=== PATIENT | female | born 1980 | race Caucasian/White ===

== ENCOUNTER 2016-04-10 13:44 | Inpatient (IN) | payer OTHER ==
[~2016-04-10] VITALS: Ht 162.6 cm; Wt 74.7 kg
[~2016-04-10 13:44] MED LIST: AMPICILLIN SODIU2 GM IM; ASPIRIN325 MG PO; ASPIRIN81 M2 PO; ATARAX,VISTARIL25 MG PO; ATARAX10 MG PO; B COMPLEX #11 EACH PO; B-COMPLEX-VITA1 EACH PO; BUPRENORPHIN-N1 EACH SL; CELEBREX200 MG PO; CHANTIX1 MG PO; CIPRO500 MG PO; CLINDAMYCIN HC300 MG PO; CLINDAMYCIN PO; COLACE100 MG PO; COUMADIN5 MG PO; CYANOCOBALAM1000 MCG PO; CYMBALTA30 MG PO; Ceftin PO; Coumadin,Jantoven PO; DAILY VALUE1 EACH PO; DIFLUCAN200 MG PO; DILAUDID4 MG PO; DOCUSATE SODIU100 MG PO; DUONEB 2.5-0.5 M3 ML IH; ENDOCET 5-3251 EACH PO; FERROUS SULFAT325 MG PO; FIORICET,ESG1 TABLET PO; FLAGYL500 MG PO; FLEXERIL10 MG PO; FLUOXETINE HCL10 MG PO; FLUOXETINE HCL20 M1 PO; FLUOXETINE HCL40 MG PO; FOLIC ACID0.4 MG PO; FOLIC ACID1 MG PO; Feosol PO; GABAPENTIN300 MG PO; GABAPENTIN600 MG PO; GEODON20 MG PO; GEODON80 MG PO; HYDROXYZINE HCL50 MG PO; IBUPROFEN800 MG PO; IMITREX20 MG NS; INDOCIN25 MG PO; IRON325 MG PO; KEFLEX500 MG PO; KENALOG,ARISTOC80 G1 TP; KLONOPIN0.5 M1 PO; LAMICTAL25 MG PO; LAMOTRIGINE100 MG PO; LEVAQUIN750 MG PO; LINZESS145 MCG PO; LUNESTA3 MG PO; MAXIPIME1 GM IV; MOTRIN600 MG PO; MOTRIN800 MG PO; NAPROSYN375 MG PO; NAPROSYN500 MG PO; NORCO 5/3251 TABLET PO; ONE DAILY WOME1 EACH PO; OPANA ER10 MG PO; OPANA ER15 MG PO; OPANA ER20 MG PO; OPANA IR10 MG PO; OPANA IR5 MG PO; OXYCODONE HCL5 MG PO; OXYCONTIN10 MG PO; OXYMORPHONE HCL5 MG PO; PERCOCET 10/1 TABLE1 PO; PERCOCET 10/1 TABLET PO; PERCOCET 5/31 TABLET PO; PHENERGAN25 MG PR; PRAZOSIN HCL1 MG PO; PRAZOSIN HCL2 MG PO; PROCHLORPERAZIN10 MG PO; PROMETHAZINE HC25 M1 PO; PROVENTIL,2.5 MG/3 M IH; PROZAC40 MG PO; PriLOSEC PO; RANITIDINE HCL150 MG PO; RITALIN20 MG PO; ROCEPHIN 2 GM VI2 GM IV; SENNA8.6 M1 PO; SENNA8.6 MG PO; SKELAXIN400 M1 PO; SOMA350 MG PO; SUBOXONE 12 MG1 EACH SL; SUBOXONE 4 MG-1 EACH PO; SUBOXONE 4 MG-1 EACH SL; TRAZODONE HCL100 MG PO; TROKENDI XR100 MG PO; ULTRAM50 MG PO; VANCOMYCIN1.25 GM/25 IV; Vibramycin, Doryx PO; WARFARIN SODIUM5 MG PO; WARFARIN SODIUM6 MG PO; ZANTAC150 MG PO; ZOFRAN ODT4 MG PO; ZOFRAN4 MG PO; ZOFRAN8 MG PO
[2016-04-10] MEDS ORDERED: SUBOXONE 8 MG-1 EAC2 SL (15:35)
[2016-04-10] MEDS ORDERED: PROZAC40 MG PO (15:37)
[2016-04-10] MEDS ORDERED: ZANTAC150 MG PO (15:37)
[2016-04-10] MEDS ORDERED: REGLAN10 MG PO (15:39)
[2016-04-10] MEDS ORDERED: GABAPENTIN300 MG PO ×2 (15:40)
[2016-04-10] MEDS ORDERED: LATUDA20 MG PO (15:41)
[2016-04-10] MEDS ORDERED: WELLBUTRIN SR150 MG PO (15:42)
[2016-04-10 16:15] LABS: HEMATOCRIT 33.7 % (36.0-46.0); MCHC 33.5 G/DL (30.0-36.0); MCV 92.6 FL (83-99); MEAN PLAT.VOLUME 10.1 uM^3 (9.5-12.4); PLATELET COUNT 197 K/uL (156-360); RBC DIS.WIDTH-CV 13.6 % (11.8-14.6); RBC DIS.WIDTH-SD 44.3 % (39-53); RED BLOOD COUNT 3.64 M/uL (3.80-5.20); WHITE BLOOD COUNT 9.3 K/uL (4.1-10.2)
[2016-04-10 16:25] LABS: CHLORIDE 111 mEq/L (99-109); POTASSIUM 3.5 mEq/L (3.7-5.4); SODIUM 139 mEq/L (136-147)
[2016-04-10 16:27] LABS: GLUCOSE 98 mg/dL (70-99)
[2016-04-10 16:28] LABS: ANION GAP 9 MEQ/L (2-14)
[2016-04-10 16:31] LABS: GFR ESTIMATE (CALCULATED) > 59 mL/min/; UREA NITROGEN (BUN) 16 mg/dL (9-23)
[2016-04-10] MEDS ORDERED: IMITREX5 MG NS (22:17)
[2016-04-10] MEDS ORDERED: LAMICTAL150 M1 PO (22:18)
[2016-04-11 01:48] VITALS: BP 107/55
[2016-04-11 07:43] VITALS: BP 108/56
[2016-04-11 09:16] LABS: HEMATOCRIT 30.9 % (36.0-46.0); MCHC 32.4 G/DL (30.0-36.0); MCV 92.8 FL (83-99); MEAN PLAT.VOLUME 9.7 uM^3 (9.5-12.4); PLATELET COUNT 158 K/uL (156-360); RBC DIS.WIDTH-CV 13.9 % (11.8-14.6); RBC DIS.WIDTH-SD 47.4 % (39-53); RED BLOOD COUNT 3.33 M/uL (3.80-5.20); WHITE BLOOD COUNT 8.9 K/uL (4.1-10.2)
[2016-04-11 09:38] LABS: ANION GAP 6 MEQ/L (2-14); CHLORIDE 111 MEQ/L (99-109); GFR ESTIMATE (CALCULATED) > 59 mL/min/; GLUCOSE 86 mg/dL (70-99); POTASSIUM 3.7 MEQ/L (3.7-5.4); SAMPLE HEMOLYSIS CHECK 0; SAMPLE ICTERIC CHECK 0; SAMPLE LIPEMIA CHECK 0; SODIUM 140 MEQ/L (136-147); UREA NITROGEN (BUN) 11 mg/dL (9-23)
[2016-04-11 11:11] VITALS: BP 99/63
[2016-04-11 15:35] VITALS: BP 106/65
[2016-04-11 20:08] VITALS: BP 94/54
[2016-04-12] VITALS: BP 113/72
[2016-04-12 04:00] VITALS: BP 102/68
[2016-04-12 06:42] LABS: EOSINOPHIL (%) 1.9 % (0-5); EOSINOPHIL COUNT 0.2 K/uL (0-0.3); HEMATOCRIT 32.6 % (36.0-46.0); IMMATURE GRANULOCYTE (%) 0.2 % (0.0-0.7); LYMPHOCYTE COUNT 1.2 K/uL (1.0-2.8); MCH 29.7 PG (29.0-34.0); MCHC 32.2 G/DL (30.0-36.0); MCV 92.4 FL (83-99); MEAN PLAT.VOLUME 10.3 uM^3 (9.5-12.4); MONOCYTE (%) 6.2 % (3-12); MONOCYTE COUNT 0.7 K/uL (0-0.8); NEUTROPHIL (%) 80.5 % (45-76); NEUTROPHIL COUNT 8.8 K/uL (1.8-6.4); PLATELET COUNT 157 K/uL (156-360); RBC DIS.WIDTH-CV 13.8 % (11.8-14.6); RBC DIS.WIDTH-SD 46.5 % (39-53); RED BLOOD COUNT 3.53 M/uL (3.80-5.20); WHITE BLOOD COUNT 10.9 K/uL (4.1-10.2)
[2016-04-12 07:14] LABS: ANION GAP 9 MEQ/L (2-14); CHLORIDE 108 MEQ/L (99-109); GFR ESTIMATE (CALCULATED) > 59 mL/min/; GLUCOSE 91 mg/dL (70-99); POTASSIUM 3.9 MEQ/L (3.7-5.4); SAMPLE HEMOLYSIS CHECK 1; SAMPLE ICTERIC CHECK 0; SAMPLE LIPEMIA CHECK 0; SODIUM 139 MEQ/L (136-147); UREA NITROGEN (BUN) 10 mg/dL (9-23)
[2016-04-12 08:43] VITALS: BP 98/61
[2016-04-12 12:25] VITALS: BP 105/56
[2016-04-12 14:44] VITALS: BP 91/50
[2016-04-12 20:24] VITALS: BP 104/58
[2016-04-13] VITALS: BP 98/40
[2016-04-13 03:11] VITALS: BP 94/54
[2016-04-13 07:40] VITALS: BP 95/38
[2016-04-13 12:34] VITALS: BP 118/67
[2016-04-13] MEDS ORDERED: MORPHINE SULFAT15 MG PO (12:40)
[2016-04-13] MEDS ORDERED: AZITHROMYCIN500 M1 PO (12:40)
== END 2016-04-13 15:00 | disposition home or self-care (01) | DRG 552 ==
LOC: EME 13:44 → EDOF 04-11 00:02 → 5SOUTH 04-11 00:02
PROVIDERS: Emergency Medicine; Hospitalist; Nurse Practitioner Adult Health; Nurse Practitioner Family
DX: M51.36 Other intervertebral disc degeneration, lumbar region (principal); J44.1 Chronic obstructive pulmonary disease with (acute) exacerbation; M54.42 Lumbago with sciatica, left side; F17.200 Nicotine dependence, unspecified, uncomplicated; F11.21 Opioid dependence, in remission; F31.9 Bipolar disorder, unspecified; Z95.2 Presence of prosthetic heart valve; Z86.79 Personal history of other diseases of the circulatory system
CPT/HCPCS: 72100; 72158; 80048; 80202; 83605; 85025; 85027; 85651; 86140; 87040; 94640; 94640 76; 97530 GO; 99202; 99281; 99285; J0295; J0692; J1170; J1650; J2270; J3370; J7030; J7050; J7120

== ENCOUNTER 2016-05-20 15:45 | Emergency (ER) | payer OTHER ==
[~2016-05-20] VITALS: Ht 162.6 cm; Wt 72.7 kg
[~2016-05-20 15:45] MED LIST changes: +AZITHROMYCIN500 M1 PO; +COMPAZINE10 MG PO; +IMITREX5 MG NS; +LAMICTAL150 M1 PO; +LATUDA20 MG PO; +MORPHINE SULFAT15 MG PO; +NEURONTIN100 MG PO; +REGLAN10 MG PO; +SUBOXONE 8 MG-1 EAC2 SL; +TOPAMAX200 MG PO; +WELLBUTRIN SR150 MG PO
[2016-05-20 16:14] LABS: HEMATOCRIT 32.1 % (36.0-46.0); MCH 30.5 PG (29.0-34.0); MCHC 33.3 G/DL (30.0-36.0); MCV 91.5 FL (83-99); MEAN PLAT.VOLUME 9.2 uM^3 (9.5-12.4); PLATELET COUNT 206 K/uL (156-360); RBC DIS.WIDTH-CV 14.5 % (11.8-14.6); RBC DIS.WIDTH-SD 46.9 % (39-53); RED BLOOD COUNT 3.51 M/uL (3.80-5.20); WHITE BLOOD COUNT 6.1 K/uL (4.1-10.2)
[2016-05-20 16:22] LABS: CHLORIDE 109 mEq/L (99-109); POTASSIUM 4.2 mEq/L (3.7-5.4); SODIUM 140 mEq/L (136-147)
[2016-05-20 16:24] LABS: GLUCOSE 94 mg/dL (70-99)
[2016-05-20 16:25] LABS: ANION GAP 8 MEQ/L (2-14)
[2016-05-20 16:28] LABS: GFR ESTIMATE (CALCULATED) > 59 mL/min/
[2016-05-20 16:29] LABS: UREA NITROGEN (BUN) 20 mg/dL (9-23)
[2016-05-20 16:34] LABS: TROP-I INTERPRETATION NEGATIVE; TROPONIN-I < 0.01 ng/mL (0.0-0.30)
[2016-05-20 16:46] LABS: D-DIMER ELISA 0.36 mg/L FEU (< 0.57)
[2016-05-20] MEDS ORDERED: PROVENTIL HFA6.7 GM IH (17:51)
[2016-05-20] MEDS ORDERED: LEVAQUIN750 MG PO (17:51)
[2016-05-20 18:13] VITALS: BP 133/77
== END 2016-05-20 18:14 | disposition home or self-care (01) ==
LOC: EME 15:45
PROVIDERS: Nurse Practitioner Family
DX: J40 Bronchitis, not specified as acute or chronic (principal); R07.9 Chest pain, unspecified; M54.5 Low back pain; G43.909 Migraine, unspecified, not intractable, without status migrainosus; G89.29 Other chronic pain; M54.9 Dorsalgia, unspecified; F17.200 Nicotine dependence, unspecified, uncomplicated; Z86.718 Personal history of other venous thrombosis and embolism
CPT/HCPCS: 71020; 72100; 80048; 84484; 85027; 85379; 93005; 94640; 99281; 99285

== ENCOUNTER 2016-06-25 13:54 | Emergency (ER) | payer OTHER ==
[~2016-06-25] VITALS: Ht 162.6 cm; Wt 78.2 kg
[~2016-06-25 13:54] MED LIST changes: +PROVENTIL HFA6.7 GM IH
[2016-06-25 14:17] VITALS: BP 118/60
[2016-06-25 14:59] LABS: HEMATOCRIT 38.6 % (36.0-46.0); MCH 30.3 PG (29.0-34.0); MCHC 31.9 G/DL (30.0-36.0); MCV 95.1 FL (83-99); MEAN PLAT.VOLUME 10.2 uM^3 (9.5-12.4); PLATELET COUNT 251 K/uL (156-360); RBC DIS.WIDTH-CV 15.2 % (11.8-14.6); RBC DIS.WIDTH-SD 53.6 % (39-53); RED BLOOD COUNT 4.06 M/uL (3.80-5.20); WHITE BLOOD COUNT 6.2 K/uL (4.1-10.2)
[2016-06-25 15:12] LABS: CHLORIDE 107 mEq/L (99-109); POTASSIUM 4.6 mEq/L (3.7-5.4); SODIUM 139 mEq/L (136-147)
[2016-06-25 15:13] LABS: GLUCOSE 101 mg/dL (70-99)
[2016-06-25 15:15] LABS: ANION GAP 9 MEQ/L (2-14)
[2016-06-25 15:17] LABS: GFR ESTIMATE (CALCULATED) > 59 mL/min/
[2016-06-25 15:18] LABS: UREA NITROGEN (BUN) 24 mg/dL (9-23)
[2016-06-25 15:22] LABS: TROP-I INTERPRETATION NEGATIVE; TROPONIN-I < 0.01 ng/mL (0.0-0.30)
== END 2016-06-25 17:38 | disposition left against medical advice (07) ==
LOC: EME 13:54
DX: R05 Cough (principal); R50.9 Fever, unspecified; R07.9 Chest pain, unspecified; R20.0 Anesthesia of skin; R06.02 Shortness of breath; R68.84 Jaw pain; M54.2 Cervicalgia; R11.0 Nausea; M79.89 Other specified soft tissue disorders; G89.29 Other chronic pain; Z79.891 Long term (current) use of opiate analgesic; Z86.718 Personal history of other venous thrombosis and embolism; F17.200 Nicotine dependence, unspecified, uncomplicated
CPT/HCPCS: 71020; 80048; 83605; 84484; 85027; 87040; 93005; 99281; 99282

== ENCOUNTER 2016-08-12 11:16 | Emergency (ER) | payer OTHER ==
[~2016-08-12] VITALS: Ht 162.6 cm; Wt 79.0 kg
[2016-08-12] MEDS ORDERED: ATIVAN1 MG PO (14:35)
[2016-08-12 14:44] VITALS: BP 106/52
== END 2016-08-12 14:45 | disposition home or self-care (01) ==
LOC: EME 11:16
DX: M54.5 Low back pain (principal); G89.29 Other chronic pain; J45.909 Unspecified asthma, uncomplicated; K21.9 Gastro-esophageal reflux disease without esophagitis; I08.0 Rheumatic disorders of both mitral and aortic valves; F31.9 Bipolar disorder, unspecified; F17.200 Nicotine dependence, unspecified, uncomplicated; Z91.81 History of falling; Z86.718 Personal history of other venous thrombosis and embolism
CPT/HCPCS: 72100; 99281; 99285; J1885

== ENCOUNTER 2016-09-15 11:41 | Emergency (ER) | payer OTHER ==
[~2016-09-15] VITALS: Ht 162.6 cm; Wt 76.1 kg
[~2016-09-15 11:41] MED LIST changes: +ATIVAN1 MG PO
[2016-09-15 11:44] VITALS: BP 130/97
[2016-09-15] MEDS ORDERED: KEFLEX500 MG PO (13:39)
[2016-09-15] MEDS ORDERED: BACTROBAN OINTM22 GM TP (13:41)
== END 2016-09-15 14:03 | disposition home or self-care (01) ==
LOC: EME 11:41
DX: L03.312 Cellulitis of back [any part except buttock and flank] (principal); R00.0 Tachycardia, unspecified; R01.1 Cardiac murmur, unspecified; M19.90 Unspecified osteoarthritis, unspecified site; F41.9 Anxiety disorder, unspecified; Z98.890 Other specified postprocedural states; F17.200 Nicotine dependence, unspecified, uncomplicated
CPT/HCPCS: 99281; 99283

== ENCOUNTER 2016-09-30 16:21 | Emergency (ER) | payer OTHER ==
[~2016-09-30] VITALS: Ht 162.6 cm; Wt 78.2 kg
[~2016-09-30 16:21] MED LIST changes: +BACTROBAN OINTM22 GM TP
[2016-09-30 18:22] LABS: HEMATOCRIT 31.4 % (36.0-46.0); MCH 30.7 PG (29.0-34.0); MCHC 32.8 G/DL (30.0-36.0); MCV 93.7 FL (83-99); MEAN PLAT.VOLUME 9.9 uM^3 (9.5-12.4); PLATELET COUNT 199 K/uL (156-360); RBC DIS.WIDTH-SD 48.2 % (39-53); RED BLOOD COUNT 3.35 M/uL (3.80-5.20); WHITE BLOOD COUNT 6.9 K/uL (4.1-10.2)
[2016-09-30 18:54] LABS: GLUCOSE 110 mg/dL (70-99)
[2016-09-30 18:57] LABS: GFR ESTIMATE (CALCULATED) > 59 mL/min/
[2016-09-30 18:58] LABS: UREA NITROGEN (BUN) 13 mg/dL (9-23)
[2016-09-30 19:07] LABS: QUANTITATIVE HCG < 4.0 MIU/ML
[2016-09-30 19:10] LABS: ADD MIUA? YES; BILIRUBIN NEGATIVE; BLOOD NEGATIVE; COLOR AMBER ((YELLOW)); GLUCOSE (STRIP) NEGATIVE; KETONES NEGATIVE; LEUKOCYTES NEGATIVE; NITRITE NEGATIVE; PROTEIN (STRIP) NEGATIVE; SPECIFIC GRAVITY 1.014 (1.000-1.030); UROBILINOGEN 0.2 MG/DL (0.2-1.0)
[2016-09-30 19:23] LABS: BACTERIA NONE SEEN /HPF; EPITHELIAL CELLS RARE /HPF; MUCUS TRACE /LPF; RED BLOOD CELLS 0-5 /HPF (0-5); WHITE BLOOD CELLS 0-5 /HPF (0-5)
[2016-09-30 19:32] LABS: CHLORIDE 111 mEq/L (99-109); POTASSIUM 3.9 mEq/L (3.7-5.4); SODIUM 141 mEq/L (136-147)
[2016-09-30 19:35] LABS: ANION GAP 8 MEQ/L (2-14)
[2016-09-30 20:47] VITALS: BP 111/66
== END 2016-09-30 20:47 | disposition home or self-care (01) ==
LOC: EME 16:21
PROVIDERS: Nurse Practitioner Family
DX: M54.5 Low back pain (principal); G89.29 Other chronic pain; J45.909 Unspecified asthma, uncomplicated; Z95.2 Presence of prosthetic heart valve; F17.200 Nicotine dependence, unspecified, uncomplicated
CPT/HCPCS: 72100; 80048; 81003; 84702; 85027; 99281; 99284

== ENCOUNTER 2016-10-29 10:39 | Emergency (ER) | payer OTHER ==
[~2016-10-29] VITALS: Ht 162.6 cm; Wt 77.2 kg
[2016-10-29 13:53] VITALS: BP 123/70
== END 2016-10-29 13:59 | disposition home or self-care (01) ==
LOC: RME 10:39 → EME 10:39 → RME 13:59
DX: S06.0X0A Concussion without loss of consciousness, initial encounter (principal); W18.12XA Fall from or off toilet with subsequent striking against object, initial encounter; Y92.002 Bathroom of unspecified non-institutional (private) residence as the place of occurrence of the external cause; K21.9 Gastro-esophageal reflux disease without esophagitis; J45.909 Unspecified asthma, uncomplicated; F31.9 Bipolar disorder, unspecified; Z86.718 Personal history of other venous thrombosis and embolism; F17.200 Nicotine dependence, unspecified, uncomplicated
CPT/HCPCS: 70450; 99281; 99283; J1885

== ENCOUNTER 2016-12-07 15:46 | Emergency (ER) | payer OTHER ==
[~2016-12-07] VITALS: Ht 162.6 cm; Wt 77.0 kg
[2016-12-07 18:44] LABS: HEMATOCRIT 28.7 % (36.0-46.0); MCH 30.7 PG (29.0-34.0); MCHC 32.4 G/DL (30.0-36.0); MCV 94.7 FL (83-99); PLATELET COUNT 182 K/uL (156-360); RBC DIS.WIDTH-CV 13.8 % (11.8-14.6); RBC DIS.WIDTH-SD 47.8 % (39-53); RED BLOOD COUNT 3.03 M/uL (3.80-5.20); WHITE BLOOD COUNT 5.8 K/uL (4.1-10.2)
[2016-12-07 18:56] LABS: CHLORIDE 109 mEq/L (99-109); POTASSIUM 4.4 mEq/L (3.7-5.4); SODIUM 143 mEq/L (136-147)
[2016-12-07 18:57] LABS: GLUCOSE 79 mg/dL (70-99)
[2016-12-07 18:59] LABS: ANION GAP 10 MEQ/L (2-14)
[2016-12-07 19:01] LABS: GFR ESTIMATE (CALCULATED) > 59 mL/min/
[2016-12-07 19:02] LABS: UREA NITROGEN (BUN) 11 mg/dL (9-23)
[2016-12-07 20:13] LABS: ADD MIUA? YES; BILIRUBIN NEGATIVE; BLOOD NEGATIVE; COLOR YELLOW ((YELLOW)); GLUCOSE (STRIP) NEGATIVE; KETONES NEGATIVE; LEUKOCYTES NEGATIVE; NITRITE NEGATIVE; PROTEIN (STRIP) NEGATIVE; SPECIFIC GRAVITY 1.009 (1.000-1.030); UROBILINOGEN 0.2 MG/DL (0.2-1.0)
[2016-12-07 20:19] LABS: BACTERIA NONE SEEN /HPF; EPITHELIAL CELLS RARE /HPF; MUCUS TRACE /LPF; RED BLOOD CELLS 0-5 /HPF (0-5); WHITE BLOOD CELLS 0-5 /HPF (0-5)
[2016-12-07] MEDS ORDERED: DOXYCYCLINE HY100 MG PO (23:11)
[2016-12-08 00:08] VITALS: BP 99/67
[2016-12-10 12:19] LABS: CHLAMYDIA TRACHOMATIS NEGATIVE; NEISSERIA GONORRHOEAE NEGATIVE
== END 2016-12-08 00:09 | disposition home or self-care (01) ==
LOC: EME 15:46
PROVIDERS: Emergency Medicine; Physician Assistant Medical
DX: M54.9 Dorsalgia, unspecified (principal); N89.8 Other specified noninflammatory disorders of vagina; S80.862A Insect bite (nonvenomous), left lower leg, initial encounter; S80.861A Insect bite (nonvenomous), right lower leg, initial encounter; W57.XXXA Bitten or stung by nonvenomous insect and other nonvenomous arthropods, initial encounter; K21.9 Gastro-esophageal reflux disease without esophagitis; F17.200 Nicotine dependence, unspecified, uncomplicated; Z95.2 Presence of prosthetic heart valve; Z86.718 Personal history of other venous thrombosis and embolism
CPT/HCPCS: 71020; 76856; 80048; 81003; 85027; 87040; 87210; 87491; 87591; 93005; 99281; 99285; J0696; J7030

== ENCOUNTER 2016-12-29 19:09 | Emergency (ER) | payer OTHER ==
[~2016-12-29] VITALS: Ht 162.6 cm; Wt 75.4 kg
[~2016-12-29 19:09] MED LIST changes: +DOXYCYCLINE HY100 MG PO
[2016-12-29 20:21] LABS: HEMATOCRIT 31.6 % (36.0-46.0); MCH 30.7 PG (29.0-34.0); MCHC 32.6 G/DL (30.0-36.0); MEAN PLAT.VOLUME 10.2 uM^3 (9.5-12.4); PLATELET COUNT 211 K/uL (156-360); RBC DIS.WIDTH-CV 13.7 % (11.8-14.6); RBC DIS.WIDTH-SD 47.1 % (39-53); RED BLOOD COUNT 3.36 M/uL (3.80-5.20); WHITE BLOOD COUNT 6.3 K/uL (4.1-10.2)
[2016-12-29 20:30] LABS: CHLORIDE 108 mEq/L (99-109); POTASSIUM 3.5 mEq/L (3.7-5.4); SODIUM 144 mEq/L (136-147)
[2016-12-29 20:32] LABS: GLUCOSE 84 mg/dL (70-99)
[2016-12-29 20:33] LABS: ANION GAP 12 MEQ/L (2-14)
[2016-12-29 20:36] LABS: GFR ESTIMATE (CALCULATED) > 59 mL/min/
[2016-12-29 20:37] LABS: UREA NITROGEN (BUN) 26 mg/dL (9-23)
[2016-12-29 20:41] LABS: TROP-I INTERPRETATION NEGATIVE; TROPONIN-I < 0.01 ng/mL (0.0-0.30)
[2016-12-29 20:51] LABS: CARBON DIOXIDE (BICARBONATE) 29.2 MEQ/L (20-31)
[2016-12-29 21:42] LABS: D-DIMER ELISA < 150.00 ng/mLDDU (<230)
[2016-12-29 22:48] LABS: TROP-I INTERPRETATION NEGATIVE; TROPONIN-I < 0.01 ng/mL (0.0-0.30)
[2016-12-29 23:17] VITALS: BP 102/58
== END 2016-12-29 23:45 | disposition home or self-care (01) ==
LOC: EME → EDBD 19:09 → EME 19:09
PROVIDERS: Emergency Medicine
DX: R07.9 Chest pain, unspecified (principal); S40.862A Insect bite (nonvenomous) of left upper arm, initial encounter; S40.861A Insect bite (nonvenomous) of right upper arm, initial encounter; W57.XXXA Bitten or stung by nonvenomous insect and other nonvenomous arthropods, initial encounter; Z86.718 Personal history of other venous thrombosis and embolism; F17.200 Nicotine dependence, unspecified, uncomplicated
CPT/HCPCS: 71020; 80048; 82803; 83605; 83880; 84484; 85027; 85379; 87040; 93005; 99281; 99285; J1885

== ENCOUNTER 2017-01-02 18:32 | Inpatient (IN) | payer OTHER ==
[~2017-01-02] VITALS: Ht 162.6 cm; Wt 77.5 kg
[2017-01-02 20:10] LABS: HEMATOCRIT 32.4 % (36.0-46.0); MCH 30.1 PG (29.0-34.0); MCHC 32.7 G/DL (30.0-36.0); MEAN PLAT.VOLUME 10.5 uM^3 (9.5-12.4); PLATELET COUNT 212 K/uL (156-360); RBC DIS.WIDTH-CV 13.4 % (11.8-14.6); RBC DIS.WIDTH-SD 45.2 % (39-53); RED BLOOD COUNT 3.52 M/uL (3.80-5.20); WHITE BLOOD COUNT 7.1 K/uL (4.1-10.2)
[2017-01-02 20:22] LABS: CHLORIDE 108 mEq/L (99-109); POTASSIUM 3.9 mEq/L (3.7-5.4); SODIUM 141 mEq/L (136-147)
[2017-01-02 20:24] LABS: GLUCOSE 78 mg/dL (70-99)
[2017-01-02 20:25] LABS: D-DIMER ELISA < 150.00 ng/mLDDU (<230)
[2017-01-02 20:26] LABS: ANION GAP 11 MEQ/L (2-14)
[2017-01-02 20:27] LABS: SERUM ETHYL ALCOHOL < 10 mg/dL
[2017-01-02 20:28] LABS: GFR ESTIMATE (CALCULATED) > 59 mL/min/
[2017-01-02 20:29] LABS: UREA NITROGEN (BUN) 14 mg/dL (9-23)
[2017-01-02 20:33] LABS: TROP-I INTERPRETATION NEGATIVE; TROPONIN-I < 0.01 ng/mL (0.0-0.30)
[2017-01-02 22:10] LABS: AMPHETAMINE NEGATIVE (500 ng/mL); BENZODIAZEPINES PRESUMPTIVE POSITIVE (150 ng/mL); COCAINE NEGATIVE (150 ng/mL); METHAMPHETAMINE PRESUMPTIVE POSITIVE (500 ng/mL); OPIATES (MORPHINE) NEGATIVE (100 ng/mL); PHENCYCLIDINE NEGATIVE (25 ng/mL); THC CANNABINOIDS NEGATIVE (50 ng/mL); TRICYCLIC ANTIDEPRESSANTS NEGATIVE (300 ng/mL)
[2017-01-02 22:11] LABS: ADD MEDTOX COMMENT Y; BARBITURATES NEGATIVE (200 ng/mL); INTERNAL CONTROLS VALID? YES; METHADONE NEGATIVE (200 ng/mL); OXYCODONE NEGATIVE (100 ng/mL); PROPOXYPHENE NEGATIVE (300 ng/mL)
[2017-01-02 22:37] LABS: BENZODIAZEPINES QUANT VALUE 0 NG/ML; BENZODIAZEPINES, URINE SCREEN Negative (200 ng/mL)
[2017-01-03] MEDS ORDERED: GABAPENTIN600 MG PO (01:31)
[2017-01-03] MEDS ORDERED: OMEPRAZOLE20 MG PO (01:32)
[2017-01-03] MEDS ORDERED: LINZESS290 MCG PO (01:54)
[2017-01-03 08:04] VITALS: BP 97/56
[2017-01-03 15:24] VITALS: BP 109/58
[2017-01-04 07:32] VITALS: BP 109/83
[2017-01-04 15:17] VITALS: BP 104/60
[2017-01-05 07:25] VITALS: BP 102/71
[2017-01-05 10:17] LABS: IRON 38 MCG/DL (35-150)
[2017-01-05 15:31] VITALS: BP 105/58
[2017-01-06 08:00] VITALS: BP 103/55
[2017-01-06 17:44] VITALS: BP 113/70
[2017-01-07 07:26] VITALS: BP 83/50
[2017-01-07 09:04] VITALS: BP 117/54
[2017-01-07] MEDS ORDERED: ARIPIPRAZOLE10 MG PO (09:20)
[2017-01-07] MEDS ORDERED: BENADRYL25 MG PO (09:20)
== END 2017-01-07 11:06 | disposition home or self-care (01) | DRG 885 ==
LOC: EME 18:32 → 1WEST 23:25 → EDOF 23:25 → 1WEST 01-03 01:41 → ENRESERV 01-03 12:58 → 1WEST 01-07 11:06
PROVIDERS: Emergency Medicine; Psychiatry & Neurology Psychiatry
DX: F29 Unspecified psychosis not due to a substance or known physiological condition (principal); F11.259 Opioid dependence with opioid-induced psychotic disorder, unspecified; R45.850 Homicidal ideations; F60.3 Borderline personality disorder; F31.9 Bipolar disorder, unspecified; J45.909 Unspecified asthma, uncomplicated; K21.9 Gastro-esophageal reflux disease without esophagitis; K59.00 Constipation, unspecified; G43.909 Migraine, unspecified, not intractable, without status migrainosus; G89.29 Other chronic pain; F17.200 Nicotine dependence, unspecified, uncomplicated; Z95.2 Presence of prosthetic heart valve
CPT/HCPCS: 71020; 80048; 82607; 82746; 83540; 84466; 84484; 84999; 85027; 85379; 90837; 93005; 97150 GO; 97165 GO; 99281; 99284; G0480; J0574

== ENCOUNTER 2017-02-21 10:20 | Emergency (ER) | payer OTHER ==
[~2017-02-21] VITALS: Ht 162.6 cm; Wt 78.7 kg
[~2017-02-21 10:20] MED LIST changes: +ARIPIPRAZOLE10 MG PO; +BENADRYL25 MG PO; +LINZESS290 MCG PO; +OMEPRAZOLE20 MG PO
[2017-02-21 10:47] VITALS: BP 125/76
[2017-02-21 11:05] LABS: POINT-OF-CARE METER ID UU13113778; POINT-OF-CARE USER ID NUTJNM
[2017-02-21 13:45] LABS: HEMATOCRIT 34.4 % (36.0-46.0); MCH 29.9 PG (29.0-34.0); MCHC 32.6 G/DL (30.0-36.0); MCV 91.7 FL (83-99); MEAN PLAT.VOLUME 10.3 uM^3 (9.5-12.4); PLATELET COUNT 242 K/uL (156-360); RBC DIS.WIDTH-CV 13.9 % (11.8-14.6); RBC DIS.WIDTH-SD 47.1 % (39-53); RED BLOOD COUNT 3.75 M/uL (3.80-5.20); WHITE BLOOD COUNT 6.3 K/uL (4.1-10.2)
[2017-02-21 13:54] LABS: CHLORIDE 108 mEq/L (99-109); POTASSIUM 4.2 mEq/L (3.7-5.4); SODIUM 142 mEq/L (136-147)
[2017-02-21 13:55] LABS: GLUCOSE 101 mg/dL (70-99)
[2017-02-21 13:57] LABS: ANION GAP 10 MEQ/L (2-14)
[2017-02-21 13:59] LABS: GFR ESTIMATE (CALCULATED) > 59 mL/min/
[2017-02-21 14:00] LABS: UREA NITROGEN (BUN) 16 mg/dL (9-23)
[2017-02-21 14:41] LABS: BILIRUBIN NEGATIVE; BLOOD NEGATIVE; GLUCOSE (STRIP) NEGATIVE; KETONES NEGATIVE; LEUKOCYTES NEGATIVE; NITRITE NEGATIVE; PROTEIN (STRIP) NEGATIVE; SPECIFIC GRAVITY 1.021 (1.000-1.030); UROBILINOGEN 0.2 MG/DL (0.2-1.0)
[2017-02-21 14:46] LABS: ADD MIUA? NO; COLOR YELLOW ((YELLOW))
[2017-02-21 14:50] LABS: C-REACTIVE PROTEIN 2.5 MG/L (0-10)
[2017-02-21] MEDS ORDERED: TESSALON PERLE100 MG PO (17:04)
[2017-02-21] MEDS ORDERED: INDOCIN50 MG PO (17:04)
[2017-02-21] MEDS ORDERED: LEVAQUIN500 MG PO (17:04)
[2017-02-21 17:07] LABS: ERTH.SED.RATE 14 MM/HR (0-20)
== END 2017-02-21 17:32 | disposition home or self-care (01) ==
LOC: EME 10:20
PROVIDERS: Physician Assistant
DX: J18.0 Bronchopneumonia, unspecified organism (principal); R07.81 Pleurodynia; F17.200 Nicotine dependence, unspecified, uncomplicated; Z88.2 Allergy status to sulfonamides; Z88.8 Allergy status to other drugs, medicaments and biological substances
CPT/HCPCS: 71020; 71275; 80048; 81003; 82948; 83605; 85027; 85379; 85651; 86140; 87040; 87502; 93005; 99281; 99284; J7030

== ENCOUNTER 2017-03-16 20:24 | Emergency (ER) | payer OTHER ==
[~2017-03-16] VITALS: Ht 162.6 cm; Wt 79.5 kg
[~2017-03-16 20:24] MED LIST changes: +INDOCIN50 MG PO; +LEVAQUIN500 MG PO; +TESSALON PERLE100 MG PO
[2017-03-16 21:14] LABS: HEMATOCRIT 31.5 % (36.0-46.0); HEMOGLOBIN 10.2 G/DL (11.9-15.5); MCH 29.5 PG (29.0-34.0); MCHC 32.4 G/DL (30.0-36.0); PLATELET COUNT 208 K/uL (156-360); RBC DIS.WIDTH-CV 15.1 % (11.8-14.6); RBC DIS.WIDTH-SD 50.8 % (39-53); RED BLOOD COUNT 3.46 M/uL (3.80-5.20); WHITE BLOOD COUNT 6.7 K/uL (4.1-10.2)
[2017-03-16 21:20] LABS: ALBUMIN 3.9 g/dL (3.2-4.8); CHLORIDE 109 mEq/L (99-109); POTASSIUM 3.7 mEq/L (3.7-5.4); SODIUM 139 mEq/L (136-147)
[2017-03-16 21:23] LABS: GLUCOSE 103 mg/dL (70-99); TOTAL PROTEIN 6.7 g/dL (6.4-8.3)
[2017-03-16 21:24] LABS: TOTAL BILIRUBIN 0.3 mg/dL (0.0-1.0)
[2017-03-16 21:25] LABS: SERUM ETHYL ALCOHOL < 10 mg/dL
[2017-03-16 21:26] LABS: ALKALINE PHOSPHATASE 62 IU/L (3-129); CREATININE 0.9 mg/dL (0.6-1.3); GFR ESTIMATE (CALCULATED) > 59 mL/min/
[2017-03-16 21:27] LABS: UREA NITROGEN (BUN) 17 mg/dL (9-23)
[2017-03-16 21:28] LABS: AST (GOT) 22 IU/L (2-34)
[2017-03-16 21:29] LABS: ALT (GPT) 15 IU/L (3-49)
[2017-03-16 21:55] LABS: TROP-I INTERPRETATION NEGATIVE; TROPONIN-I < 0.01 ng/mL (0.0-0.30)
[2017-03-16 23:13] LABS: AMPHETAMINE NEGATIVE (500 ng/mL); BARBITURATES PRESUMPTIVE POSITIVE (200 ng/mL); BENZODIAZEPINES PRESUMPTIVE POSITIVE (150 ng/mL); BUPRENORPHINE PRESUMPTIVE POSITIVE (10 ng/mL); COCAINE NEGATIVE (150 ng/mL); METHADONE NEGATIVE (200 ng/mL); METHAMPHETAMINE NEGATIVE (500 ng/mL); OPIATES (MORPHINE) NEGATIVE (100 ng/mL); OXYCODONE NEGATIVE (100 ng/mL); PHENCYCLIDINE NEGATIVE (25 ng/mL); PROPOXYPHENE NEGATIVE (300 ng/mL); THC CANNABINOIDS PRESUMPTIVE POSITIVE (50 ng/mL); TRICYCLIC ANTIDEPRESSANTS NEGATIVE (300 ng/mL)
[2017-03-17 00:04] LABS: BENZODIAZEPINES, URINE SCREEN Negative (200 ng/mL)
[2017-03-17 01:14] VITALS: BP 101/62
== END 2017-03-17 01:16 | disposition home or self-care (01) ==
LOC: EME 20:24
PROVIDERS: Emergency Medicine
DX: F20.9 Schizophrenia, unspecified (principal); R07.9 Chest pain, unspecified; G89.29 Other chronic pain; M54.9 Dorsalgia, unspecified; J45.909 Unspecified asthma, uncomplicated; K21.9 Gastro-esophageal reflux disease without esophagitis; F17.200 Nicotine dependence, unspecified, uncomplicated; Z86.718 Personal history of other venous thrombosis and embolism; Z95.2 Presence of prosthetic heart valve; Z90.710 Acquired absence of both cervix and uterus; Z88.2 Allergy status to sulfonamides; Z88.8 Allergy status to other drugs, medicaments and biological substances
CPT/HCPCS: 71020; 80053; 80175 90; 84484; 84999; 85027; 90837; 93005; 99281; 99285; G0480

== ENCOUNTER 2017-03-26 17:53 | Emergency (ER) | payer OTHER ==
[~2017-03-26] VITALS: Ht 162.6 cm; Wt 80.4 kg
[2017-03-26 18:42] LABS: HEMATOCRIT 31.9 % (36.0-46.0); HEMOGLOBIN 10.4 G/DL (11.9-15.5); MCH 30.1 PG (29.0-34.0); MCHC 32.6 G/DL (30.0-36.0); MCV 92.2 FL (83-99); PLATELET COUNT 177 K/uL (156-360); RBC DIS.WIDTH-CV 14.8 % (11.8-14.6); RBC DIS.WIDTH-SD 50.3 % (39-53); RED BLOOD COUNT 3.46 M/uL (3.80-5.20); WHITE BLOOD COUNT 6.4 K/uL (4.1-10.2)
[2017-03-26 18:51] LABS: ALBUMIN 4.2 g/dL (3.2-4.8); CHLORIDE 110 mEq/L (99-109); POTASSIUM 4.3 mEq/L (3.7-5.4); SODIUM 141 mEq/L (136-147)
[2017-03-26 18:53] LABS: GLUCOSE 105 mg/dL (70-99); TOTAL PROTEIN 7.1 g/dL (6.4-8.3)
[2017-03-26 18:55] LABS: TOTAL BILIRUBIN 0.4 mg/dL (0.0-1.0)
[2017-03-26 18:56] LABS: SERUM ETHYL ALCOHOL < 10 mg/dL
[2017-03-26 18:57] LABS: ALKALINE PHOSPHATASE 69 IU/L (3-129); CREATININE 0.8 mg/dL (0.6-1.3); GFR ESTIMATE (CALCULATED) > 59 mL/min/
[2017-03-26 18:58] LABS: AST (GOT) 31 IU/L (2-34); UREA NITROGEN (BUN) 12 mg/dL (9-23)
[2017-03-26 19:00] LABS: ALT (GPT) 19 IU/L (3-49)
[2017-03-26 19:05] LABS: QUANTITATIVE HCG < 4.0 MIU/ML
[2017-03-26 19:40] VITALS: BP 109/67
== END 2017-03-26 19:41 | disposition home or self-care (01) ==
LOC: EME 17:53
PROVIDERS: Emergency Medicine
DX: F60.3 Borderline personality disorder (principal); F29 Unspecified psychosis not due to a substance or known physiological condition; Z04.6 Encounter for general psychiatric examination, requested by authority; F31.9 Bipolar disorder, unspecified; F17.200 Nicotine dependence, unspecified, uncomplicated; J45.909 Unspecified asthma, uncomplicated; K21.9 Gastro-esophageal reflux disease without esophagitis; Z86.718 Personal history of other venous thrombosis and embolism; Z88.2 Allergy status to sulfonamides; Z88.8 Allergy status to other drugs, medicaments and biological substances
CPT/HCPCS: 80053; 81003; 84702; 85027; 90837; 99281; 99284; G0480

== ENCOUNTER 2017-04-04 18:53 | Emergency (ER) | payer OTHER ==
[~2017-04-04] VITALS: Ht 162.6 cm; Wt 96.3 kg
[2017-04-04 19:33] LABS: BASOPHIL (%) 0.1 % (0-1); EOSINOPHIL (%) 1.6 % (0-5); EOSINOPHIL COUNT 0.1 K/uL (0-0.3); HEMATOCRIT 31.1 % (36.0-46.0); HEMOGLOBIN 10.1 G/DL (11.9-15.5); IMMATURE GRANULOCYTE (%) 0.1 % (0.0-0.7); LYMPHOCYTE (%) 33.5 % (15-42); LYMPHOCYTE COUNT 2.3 K/uL (1.0-2.8); MCH 29.8 PG (29.0-34.0); MCHC 32.5 G/DL (30.0-36.0); MCV 91.7 FL (83-99); MONOCYTE (%) 6.6 % (3-12); MONOCYTE COUNT 0.5 K/uL (0-0.8); NEUTROPHIL (%) 58.1 % (45-76); PLATELET COUNT 193 K/uL (156-360); RBC DIS.WIDTH-CV 15.3 % (11.8-14.6); RBC DIS.WIDTH-SD 51.1 % (39-53); RED BLOOD COUNT 3.39 M/uL (3.80-5.20); WHITE BLOOD COUNT 6.8 K/uL (4.1-10.2)
[2017-04-04 19:42] LABS: CHLORIDE 112 mEq/L (99-109); SODIUM 140 mEq/L (136-147)
[2017-04-04 19:43] LABS: MAGNESIUM 2.2 mg/dL (1.3-2.7)
[2017-04-04 19:44] LABS: GLUCOSE 109 mg/dL (70-99)
[2017-04-04 19:48] LABS: CREATININE 0.8 mg/dL (0.6-1.3); GFR ESTIMATE (CALCULATED) > 59 mL/min/
[2017-04-04 19:49] LABS: UREA NITROGEN (BUN) 16 mg/dL (9-23)
[2017-04-04 19:56] LABS: TROP-I INTERPRETATION NEGATIVE; TROPONIN-I < 0.01 ng/mL (0.0-0.30)
[2017-04-04 21:20] LABS: TROP-I INTERPRETATION NEGATIVE; TROPONIN-I < 0.01 ng/mL (0.0-0.30)
[2017-04-04 21:57] VITALS: BP 104/71
== END 2017-04-04 21:57 | disposition home or self-care (01) ==
LOC: EME 18:53
PROVIDERS: Emergency Medicine
DX: R07.89 Other chest pain (principal); J44.9 Chronic obstructive pulmonary disease, unspecified; K21.9 Gastro-esophageal reflux disease without esophagitis; G43.909 Migraine, unspecified, not intractable, without status migrainosus; F31.9 Bipolar disorder, unspecified; G89.29 Other chronic pain; Z72.0 Tobacco use; Z86.718 Personal history of other venous thrombosis and embolism; Z88.2 Allergy status to sulfonamides; Z88.8 Allergy status to other drugs, medicaments and biological substances
CPT/HCPCS: 71046; 80048; 83735; 84484; 85025; 85379; 85610; 85730; 93005; 94640; 99281; 99285

== ENCOUNTER 2017-04-27 17:56 | Emergency (ER) | payer OTHER ==
[~2017-04-27] VITALS: Ht 162.6 cm; Wt 80.9 kg
[2017-04-27 18:11] VITALS: BP 127/87
[2017-04-27 18:52] LABS: HEMATOCRIT 36.4 % (36.0-46.0); HEMOGLOBIN 12.3 G/DL (11.9-15.5); MCH 30.9 PG (29.0-34.0); MCHC 33.8 G/DL (30.0-36.0); MCV 91.5 FL (83-99); PLATELET COUNT 197 K/uL (156-360); RBC DIS.WIDTH-CV 14.9 % (11.8-14.6); RBC DIS.WIDTH-SD 50.3 % (39-53); RED BLOOD COUNT 3.98 M/uL (3.80-5.20); WHITE BLOOD COUNT 10.1 K/uL (4.1-10.2)
[2017-04-27 18:56] LABS: ALBUMIN 4.3 g/dL (3.2-4.8); CHLORIDE 116 mEq/L (99-109); POTASSIUM 3.5 mEq/L (3.7-5.4)
[2017-04-27 18:57] LABS: SODIUM 145 mEq/L (136-147)
[2017-04-27 18:59] LABS: GLUCOSE 100 mg/dL (70-99)
[2017-04-27 19:01] LABS: TOTAL BILIRUBIN 0.4 mg/dL (0.0-1.0)
[2017-04-27 19:02] LABS: ALKALINE PHOSPHATASE 80 IU/L (3-129); CREATININE 0.8 mg/dL (0.6-1.3); GFR ESTIMATE (CALCULATED) > 59 mL/min/
[2017-04-27 19:04] LABS: AST (GOT) 19 IU/L (2-34); UREA NITROGEN (BUN) 20 mg/dL (9-23)
[2017-04-27 19:05] LABS: ALT (GPT) 19 IU/L (3-49)
[2017-04-27 19:11] LABS: QUANTITATIVE HCG < 4.0 MIU/ML
[2017-04-27 19:20] LABS: APPEARANCE CLOUDY ((CLEAR)); BILIRUBIN NEGATIVE; BLOOD NEGATIVE; COLOR AMBER ((YELLOW)); GLUCOSE (STRIP) NEGATIVE; KETONES NEGATIVE; LEUKOCYTES NEGATIVE; NITRITE NEGATIVE; PROTEIN (STRIP) NEGATIVE; SPECIFIC GRAVITY 1.016 (1.000-1.030); UROBILINOGEN 0.2 MG/DL (0.2-1.0)
[2017-04-27 19:25] LABS: BACTERIA NONE SEEN /HPF; EPITHELIAL CELLS RARE /HPF; MUCUS TRACE /LPF; RED BLOOD CELLS 0-5 /HPF (0-5); UCUL ADDED? NO; WHITE BLOOD CELLS 0-5 /HPF (0-5)
== END 2017-04-27 20:06 | disposition left against medical advice (07) ==
LOC: EME 17:56
DX: M54.9 Dorsalgia, unspecified (principal); R11.2 Nausea with vomiting, unspecified; R50.9 Fever, unspecified; Z53.21 Procedure and treatment not carried out due to patient leaving prior to being seen by health care provider
CPT/HCPCS: 80053; 81003; 84702; 85027

== ENCOUNTER 2017-10-11 14:09 | Inpatient (IN) | payer OTHER ==
[~2017-10-11] VITALS: Ht 162.6 cm; Wt 83.9 kg
[2017-10-11 15:13] LABS: HEMATOCRIT 32.6 % (36.0-46.0); HEMOGLOBIN 11.2 G/DL (11.9-15.5); MCH 30.9 PG (29.0-34.0); MCHC 34.4 G/DL (30.0-36.0); MCV 89.8 FL (83-99); PLATELET COUNT 191 K/uL (156-360); RBC DIS.WIDTH-CV 13.5 % (11.8-14.6); RED BLOOD COUNT 3.63 M/uL (3.80-5.20); WHITE BLOOD COUNT 5.8 K/uL (4.1-10.2)
[2017-10-11 15:26] LABS: ALBUMIN 4.3 g/dL (3.2-4.8); CHLORIDE 111 mEq/L (99-109); POTASSIUM 3.6 mEq/L (3.7-5.4); SODIUM 141 mEq/L (136-147)
[2017-10-11 15:29] LABS: GLUCOSE 101 mg/dL (70-99); TOTAL PROTEIN 7.3 g/dL (6.4-8.3)
[2017-10-11 15:30] LABS: TOTAL BILIRUBIN 0.4 mg/dL (0.0-1.0)
[2017-10-11 15:31] LABS: SERUM ETHYL ALCOHOL < 10 mg/dL
[2017-10-11 15:32] LABS: CREATININE 0.8 mg/dL (0.6-1.3); GFR ESTIMATE (CALCULATED) > 59 mL/min/
[2017-10-11 15:33] LABS: ALKALINE PHOSPHATASE 76 IU/L (3-129)
[2017-10-11 15:34] LABS: AST (GOT) 21 IU/L (2-34); UREA NITROGEN (BUN) 15 mg/dL (9-23)
[2017-10-11 15:36] LABS: ACETAMINOPHEN (TYLENOL) < 10 mcg/mL (10-30); ALT (GPT) 19 IU/L (3-49); SALICYLATE < 5.0 MG/DL (15-30)
[2017-10-11 17:59] LABS: APPEARANCE CLEAR ((CLEAR)); BILIRUBIN NEGATIVE; BLOOD NEGATIVE; COLOR YELLOW ((YELLOW)); GLUCOSE (STRIP) NEGATIVE; KETONES NEGATIVE; LEUKOCYTES NEGATIVE; NITRITE NEGATIVE; PROTEIN (STRIP) NEGATIVE; SPECIFIC GRAVITY 1.011 (1.000-1.030); UROBILINOGEN 0.2 MG/DL (0.2-1.0)
[2017-10-11 18:08] LABS: AMPHETAMINE NEGATIVE (500 ng/mL); BENZODIAZEPINES PRESUMPTIVE POSITIVE (150 ng/mL); COCAINE NEGATIVE (150 ng/mL); METHAMPHETAMINE NEGATIVE (500 ng/mL); OPIATES (MORPHINE) NEGATIVE (100 ng/mL); PHENCYCLIDINE NEGATIVE (25 ng/mL); THC CANNABINOIDS NEGATIVE (50 ng/mL)
[2017-10-11 18:09] LABS: BARBITURATES PRESUMPTIVE POSITIVE (200 ng/mL); BUPRENORPHINE PRESUMPTIVE POSITIVE (10 ng/mL); METHADONE NEGATIVE (200 ng/mL); OXYCODONE NEGATIVE (100 ng/mL); PROPOXYPHENE NEGATIVE (300 ng/mL); TRICYCLIC ANTIDEPRESSANTS NEGATIVE (300 ng/mL)
[2017-10-11 18:19] LABS: MAGNESIUM 2.4 mg/dL (1.3-2.7)
[2017-10-11 18:59] LABS: BENZODIAZEPINES, URINE SCREEN Negative (200 ng/mL)
[2017-10-11] MEDS ORDERED: ARIPIPRAZOLE15 MG PO (20:33)
[2017-10-11] MEDS ORDERED: KETOROLAC TROME10 MG PO (20:34)
[2017-10-11] MEDS ORDERED: BUPROPION XL300 MG PO (20:34)
[2017-10-11] MEDS ORDERED: DOXEPIN HCL25 MG PO (20:35)
[2017-10-11] MEDS ORDERED: SUMATRIPTA6 MG/0.5 M SC (20:35)
[2017-10-11] MEDS ORDERED: ATARAX,VISTARIL50 MG PO (20:36)
[2017-10-11] MEDS ORDERED: ZOLPIDEM TARTRA10 MG PO (20:37)
[2017-10-11] MEDS ORDERED: LAMOTRIGINE200 MG PO (20:38)
[2017-10-11] MEDS ORDERED: FLUOXETINE HCL40 MG PO (20:38)
[2017-10-11] MEDS ORDERED: SUBOXONE 12 MG1 EACH SL (20:39)
[2017-10-11] MEDS ORDERED: TOPIRAMATE50 MG PO (20:39)
[2017-10-11] MEDS ORDERED: TOPIRAMATE200 MG PO (20:40)
[2017-10-11] MEDS ORDERED: PROMETHAZINE12.5 M1 PO (20:40)
[2017-10-11 22:54] VITALS: BP 104/53
[2017-10-12 04:28] VITALS: BP 93/46
[2017-10-12 05:52] LABS: HEMATOCRIT 31.5 % (36.0-46.0); MCH 29.9 PG (29.0-34.0); MCHC 31.7 G/DL (30.0-36.0); PLATELET COUNT 163 K/uL (156-360); RBC DIS.WIDTH-CV 13.9 % (11.8-14.6); RBC DIS.WIDTH-SD 47.8 % (39-53); RED BLOOD COUNT 3.34 M/uL (3.80-5.20); WHITE BLOOD COUNT 5.5 K/uL (4.1-10.2)
[2017-10-12 05:54] LABS: MCV 94.3 FL (83-99)
[2017-10-12 06:06] LABS: CHLORIDE 116 MEQ/L (99-109); CREATININE 0.7 MG/DL (0.6-1.3); GFR ESTIMATE (CALCULATED) > 59 mL/min/; GLUCOSE 95 mg/dL (70-99); MAGNESIUM 2.1 mg/dl (1.3-2.7); POTASSIUM 4.2 MEQ/L (3.7-5.4); SODIUM 142 MEQ/L (136-147); UREA NITROGEN (BUN) 13 mg/dL (9-23)
[2017-10-12 07:12] VITALS: BP 98/60
[2017-10-12 11:15] VITALS: BP 107/72
[2017-10-12 15:56] VITALS: BP 103/57
[2017-10-12 17:43] LABS: TROP-I INTERPRETATION NEGATIVE; TROPONIN-I < 0.01 ng/mL (0.0-0.30)
[2017-10-12 19:41] VITALS: BP 115/79
[2017-10-12 21:24] LABS: TROP-I INTERPRETATION NEGATIVE; TROPONIN-I < 0.01 ng/mL (0.0-0.30)
[2017-10-13 00:07] VITALS: BP 114/68
[2017-10-13 03:24] LABS: TROP-I INTERPRETATION NEGATIVE; TROPONIN-I < 0.01 ng/mL (0.0-0.30)
[2017-10-13 03:25] VITALS: BP 119/63
[2017-10-13 08:03] VITALS: BP 104/55
[2017-10-13] MEDS ORDERED: SUBOXONE 2 MG-1 EACH SL (11:18)
[2017-10-13] MEDS ORDERED: HEPARIN SO5000 UNIT4 SC (11:18)
[2017-10-13] MEDS ORDERED: BUPRENORPHIN-N1 EACH SL (11:18)
[2017-10-13] MEDS ORDERED: TYLENOL REGULA325 MG PO (11:18)
== END 2017-10-13 13:26 | DRG 918 ==
LOC: EME 14:09 → EDOF 20:21 → 4EAST 20:21 → ENRESERV 20:22 → 4EAST 22:17
PROVIDERS: Emergency Medicine; Internal Medicine
DX: T45.0X2A Poisoning by antiallergic and antiemetic drugs, intentional self-harm, initial encounter (principal); R42 Dizziness and giddiness; R11.2 Nausea with vomiting, unspecified; I45.81 Long QT syndrome; R53.83 Other fatigue; F31.9 Bipolar disorder, unspecified; E86.0 Dehydration; E87.6 Hypokalemia; J98.11 Atelectasis; D64.9 Anemia, unspecified; J45.909 Unspecified asthma, uncomplicated; K21.9 Gastro-esophageal reflux disease without esophagitis; G89.29 Other chronic pain; M54.9 Dorsalgia, unspecified; G43.909 Migraine, unspecified, not intractable, without status migrainosus; F41.9 Anxiety disorder, unspecified; F19.10 Other psychoactive substance abuse, uncomplicated; F10.10 Alcohol abuse, uncomplicated; F17.200 Nicotine dependence, unspecified, uncomplicated; Z95.2 Presence of prosthetic heart valve; Z86.718 Personal history of other venous thrombosis and embolism; Z59.9 Problem related to housing and economic circumstances, unspecified; Z91.5 Personal history of self-harm
CPT/HCPCS: 71045; 80048; 80053; 80175 90; 81003; 83735; 84484; 84999; 85027; 93005; 99281; 99285; G0480; J0572; J0574; J2405; J7030

== ENCOUNTER 2017-10-13 13:21 | Inpatient (IN) | payer OTHER ==
[~2017-10-13 13:21] MED LIST changes: +ARIPIPRAZOLE15 MG PO; +ATARAX,VISTARIL50 MG PO; +BUPROPION XL300 MG PO; +DOXEPIN HCL25 MG PO; +HEPARIN SO5000 UNIT4 SC; +KETOROLAC TROME10 MG PO; +LAMOTRIGINE200 MG PO; +PROMETHAZINE12.5 M1 PO; +SUBOXONE 2 MG-1 EACH SL; +SUMATRIPTA6 MG/0.5 M SC; +TOPIRAMATE200 MG PO; +TOPIRAMATE50 MG PO; +TYLENOL REGULA325 MG PO; +ZOLPIDEM TARTRA10 MG PO
[2017-10-13 13:40] VITALS: BP 119/73
[2017-10-14 07:36] VITALS: BP 113/67
[2017-10-14 16:18] VITALS: BP 132/77
[2017-10-15 07:57] VITALS: BP 98/60
[2017-10-15 16:00] VITALS: BP 132/91
[2017-10-16 07:49] VITALS: BP 115/71
[2017-10-16 16:27] VITALS: BP 131/70
[2017-10-17 08:15] VITALS: BP 118/56
[2017-10-17 16:31] VITALS: BP 108/58
[2017-10-18 07:49] VITALS: BP 110/64
[2017-10-18] MEDS ORDERED: ARIPIPRAZOLE30 MG PO (09:25)
[2017-10-18] MEDS ORDERED: ZYPREXA10 MG PO (09:25)
== END 2017-10-18 12:17 | disposition home or self-care (01) | DRG 885 ==
LOC: 1WEST 13:21
DX: F25.0 Schizoaffective disorder, bipolar type (principal); F11.10 Opioid abuse, uncomplicated; F60.3 Borderline personality disorder; T39.312A Poisoning by propionic acid derivatives, intentional self-harm, initial encounter; D53.9 Nutritional anemia, unspecified; J45.909 Unspecified asthma, uncomplicated; G43.909 Migraine, unspecified, not intractable, without status migrainosus; K21.9 Gastro-esophageal reflux disease without esophagitis; G89.29 Other chronic pain; F12.920 Cannabis use, unspecified with intoxication, uncomplicated; Z59.0 Homelessness; Z95.2 Presence of prosthetic heart valve; Y92.89 Other specified places as the place of occurrence of the external cause
CPT/HCPCS: 97150 GO; 97165 GO; J0572; J0574; Q0177

== ENCOUNTER 2017-11-01 02:37 | Emergency (ER) | payer OTHER ==
[~2017-11-01] VITALS: Ht 162.6 cm; Wt 78.1 kg
[~2017-11-01 02:37] MED LIST changes: +ARIPIPRAZOLE30 MG PO; +ZYPREXA10 MG PO
[2017-11-01] MEDS ORDERED: CILOXAN 0.100 DROP/5 RIGHT EYE (03:59)
[2017-11-01 04:20] VITALS: BP 115/68
== END 2017-11-01 04:20 | disposition home or self-care (01) ==
LOC: EME 02:37
DX: H16.9 Unspecified keratitis (principal); G89.29 Other chronic pain; M54.9 Dorsalgia, unspecified; K21.9 Gastro-esophageal reflux disease without esophagitis; J45.909 Unspecified asthma, uncomplicated; G43.909 Migraine, unspecified, not intractable, without status migrainosus; F17.200 Nicotine dependence, unspecified, uncomplicated; Z86.718 Personal history of other venous thrombosis and embolism; Z90.710 Acquired absence of both cervix and uterus; Z88.2 Allergy status to sulfonamides; Z88.8 Allergy status to other drugs, medicaments and biological substances
CPT/HCPCS: 99281; 99284

== ENCOUNTER 2017-11-13 19:46 | Emergency (ER) | payer OTHER ==
[~2017-11-13] VITALS: Ht 162.6 cm; Wt 77.5 kg
[~2017-11-13 19:46] MED LIST changes: +CILOXAN 0.100 DROP/5 RIGHT EYE
[2017-11-13 21:29] LABS: BASOPHIL (%) 0.5 % (0-1); EOSINOPHIL (%) 2.5 % (0-5); EOSINOPHIL COUNT 0.1 K/uL (0-0.3); HEMATOCRIT 33.7 % (36.0-46.0); HEMOGLOBIN 11.2 G/DL (11.9-15.5); IMMATURE GRANULOCYTE (%) 0.2 % (0.0-0.7); LYMPHOCYTE (%) 31.7 % (15-42); LYMPHOCYTE COUNT 1.4 K/uL (1.0-2.8); MCH 30.9 PG (29.0-34.0); MCHC 33.2 G/DL (30.0-36.0); MCV 92.8 FL (83-99); MONOCYTE (%) 7.8 % (3-12); MONOCYTE COUNT 0.3 K/uL (0-0.8); NEUTROPHIL (%) 57.3 % (45-76); NEUTROPHIL COUNT 2.5 K/uL (1.8-6.4); PLATELET COUNT 172 K/uL (156-360); RBC DIS.WIDTH-CV 14.2 % (11.8-14.6); RBC DIS.WIDTH-SD 48.5 % (39-53); RED BLOOD COUNT 3.63 M/uL (3.80-5.20); WHITE BLOOD COUNT 4.4 K/uL (4.1-10.2)
[2017-11-13 21:44] LABS: CHLORIDE 113 mEq/L (99-109); POTASSIUM 3.6 mEq/L (3.7-5.4); SODIUM 143 mEq/L (136-147)
[2017-11-13 21:45] LABS: GLUCOSE 77 mg/dL (70-99)
[2017-11-13 21:49] LABS: CREATININE 0.9 mg/dL (0.6-1.3); GFR ESTIMATE (CALCULATED) > 59 mL/min/
[2017-11-13 21:50] LABS: UREA NITROGEN (BUN) 12 mg/dL (9-23)
[2017-11-13] MEDS ORDERED: VIBRAMYCIN100 MG PO (22:15)
[2017-11-13] MEDS ORDERED: MUCINEX D ER T1 EACH PO (22:16)
[2017-11-13] MEDS ORDERED: FLONASE16 G1 BOTH NARES (22:16)
[2017-11-13 22:35] VITALS: BP 113/64
== END 2017-11-13 22:37 | disposition home or self-care (01) ==
LOC: EME 19:46
PROVIDERS: Physician Assistant
DX: R60.0 Localized edema (principal); L03.115 Cellulitis of right lower limb; J32.9 Chronic sinusitis, unspecified; Z86.718 Personal history of other venous thrombosis and embolism; Z90.710 Acquired absence of both cervix and uterus; Z88.2 Allergy status to sulfonamides; F17.200 Nicotine dependence, unspecified, uncomplicated
CPT/HCPCS: 80048; 85025; 93970; 99281; 99283